=== PATIENT | female | born 1980 | race Caucasian/White ===

== ENCOUNTER 2021-01-25 08:23 | Outpatient (REF) | payer BC, SELFPAY ==
[2021-01-25 11:02] LABS: MANUAL DIFF FLAG NO
[2021-01-25 11:04] LABS: Basophils Percent Auto 0.3 % (0-2); Eosinophils Absolute Auto 0.1 X10*3/uL (0.0-0.4); Hematocrit 39.2 % (37-47); Hemoglobin 13.1 g/dl (12.0-16.0); Imm Gran Abs Auto 0.02 X10*3/uL (0.00-0.03); Imm Gran Pct Auto 0.3 % (0.0-0.4); Lymphocytes Absolute Auto 2.2 X10*3/uL (1.2-4.9); Lymphocytes Percent Auto 33.4 % (20-40); Mean Corpuscular HGB Conc 33.4 g/dl (31.0-35.0); Mean Corpuscular Hemoglobin 29.6 pg (27.0-33.0); Mean Corpuscular Volume 88.5 fL (80-98); Mean Platelet Volume 10.3 fL (9.4-12.3); Monocytes Absolute Auto 0.4 X10*3/uL (0.1-1.2); Monocytes Percent Auto 6.2 % (2-11); Neutrophils Absolute Auto 3.8 X10*3/uL (2.0-8.3); Neutrophils Percent Auto 57.8 % (45-73); Platelet Count 315 X10*3/uL (160-400); Red Blood Count 4.43 X10*6/uL (4.20-5.50); Red Cell Distribution Width 12.6 % (11.0-16.0); White Blood Count 6.5 X10*3/uL (4.8-10.8)
[2021-01-25 12:17] LABS: Alanine Aminotransferase 27 U/L (0-31); Albumin Level 4.3 g/dL (3.5-5.0); Alkaline Phosphatase 65 U/L (39-117); Anion Gap 12 (12-20); Aspartate Amino Transferase 30 U/L (5-31); Bilirubin Total 1.3 mg/dL (0.0-1.0); Blood Urea Nitrogen 14 mg/dL (9-16); Calcium 9.4 mg/dL (8.4-10.2); Carbon Dioxide 28 mmol/L (22-29); Chloride 105 mmol/L (96-108); Cholesterol 227 mg/dL; Estimated Glomerular Filt Rate > 60; Glucose Fasting 104 mg/dL (60-99); HDL Cholesterol 54 mg/dL; LDL Cholesterol Calculated 157 mg/dl; Potassium 4.1 mmol/L (3.3-5.1); Sodium 141 mmol/L (135-145); Triglycerides 84 mg/dL
== END 2021-01-25 08:24 | disposition home or self-care (01) ==
LOC: HO.MANLDS 08:23
PROVIDERS: PCP Physician Assistant; Visit Provider Physician Assistant
DX: Z00.00 Encounter for general adult medical examination without abnormal findings (principal)
CPT/HCPCS: 36415; 80053; 80061; 85025

== ENCOUNTER 2024-11-02 13:56 | Emergency (ER) | payer BC, SELFPAY ==
--- NOTE | ~2024-11-02 | XR_ITS ---
EXAMINATION: XR FINGER, LEFT CLINICAL INFORMATION: crush injury distal tip 4th finger COMPARISON: None available. TECHNIQUE: Three views of the left fourth digit. FINDINGS: Suspect subtle tuft fracture of the distal phalanx of the fourth digit. There is overlying soft tissue laceration. No malalignment or additional fracture. There is a tiny 1 mm radiopaque foreign body with the distal fingertip soft tissues. XR/XR finger LT min 2V IMPRESSION: 1. Suspect subtle tuft fracture of the distal phalanx of the fourth digit. 2. Tiny 1 mm radiopaque foreign body within the distal fingertip soft tissues. Electronically signed by: Ish Coyne MD 11/02/2024 02:29 PM EDT RP
--- NOTE | 2024-11-02 14:05 | ED_ITS ---
HPI - General Adult General Chief complaint: Extremity Injury, Upper Stated complaint: ring finger injury Time Seen by Provider: 11/02/24 15:27 Source: patient and family (patient's ) Mode of arrival: ambulatory Limitations: no limitations History of Present Illness ED Provider: Marika Cifuentes PA-C HPI narrative: Patient is a 44 year old assigned female at with no reported medical history presenting to the emergency department today with a left 4th finger injury. Patient states that she smashed her left 4th finger in between her 's trailer and her 's truck. Patient states that she is up to date on her tetanus status. Patient denies any dizziness, lightheadedness, abdominal pain, nausea, vomiting, fever, chills, blurry vision, double vision, loss of vision, chest pain, difficulty breathing, shortness of breath, back pain, night sweats, pain with urination, increased urinary frequency, increased urinary urgency, blood in her urine or stool, syncope or a near syncopal episode, bowel incontinence, bladder incontinence, or any other complaints at this time. Relieving factors: none Associated symptoms: denies other symptoms Treatments prior to arrival: none Related Data Previous Rx's ?Medication ?Instructions ?Recorded amoxicillin 875 mg-potassium 1 tab PO BID 7 days #14 t abs 11/02/24 clavulanate 125 mg tablet Allergies Allergy/AdvReac Type Severity Reaction Status Date / Time No Known Allergies Allergy Verified 11/02/24 14:08 Review of Systems 2 Constitutional: Constitutional: Reports no additional constitutional complaints, Denies chills, Denies fever(s) and Denies night sweats Eyes: Eyes: Reports no additional eye complaints, Denies blurry vision, Denies change in vision, Denies diplopia, Denies eye discharge, Denies loss of vision and Denies eye pain ENT: Denies dizziness Cardiovascular: Cardiovascular: Reports no additional cardiovascular complaints, Denies chest pain, Denies lightheadedness, Denies Loss of Consciousness and Denies dyspnea Respiratory: Respiratory: Reports no additional respiratory complaints and Denies dyspnea Gastrointestinal: Gastrointestinal: Reports no additional gastrointestinal complaints, Denies abdominal pain, Denies melena, Denies hematochezia, Denies change in bowel habits and Denies change in stool character Genitourinary: Genitourinary: Denies hematuria, Denies urinary frequency, Denies dysuria, Denies urinary incontinence, Denies urinary hesitancy and Denies urinary urgency Musculoskeletal: Musculoskeletal: Reports no additional musculoskeletal complaints, Denies numbness and Denies tingling Comments: left 4th finger pain Neurologic: Denies dizziness, Denies loss of vision, Denies numbness and Denies tingling Psychiatric: Psychiatric: Reports no additional psychiatric complaints Endocrine: Endocrine: Reports no additional endocrine complaints Hematologic/Lymphatic: Hematologic/Lymphatic: Reports no additional hematologic/lymphatic complaints Allergic/Immunologic: Allergic/Immunologic: Reports no additional allergic/immunologic complaints PMFSH Past Medical History Attestation statement: The following information was validated with the patient. Source: old records reviewed and nursing notes reviewed Social History Social History Advance Directives: No Advance Directives Information Provided: No Physical Exam ED Vital Signs: Vital Signs - 24 hr 11/02/24 14:06 11/02/24 16:24 11/02/24 17:16 Temperature 98.6 F 98 F 98 F Pulse Rate 85 88 88 Respiratory Rate 16 20 20 Blood Pressure 139/76 150/74 H 150/74 H Pulse Oximetry 96 98 98 Oxygen Delivery Method Room Air Room Air Room Air BMI result Body Mass Index 36.3 Const General: cooperative, no acute distress, alert and awake Nutritional Appearance: well nourished Orientation/consciousness: patient oriented x3 HENMT Head: Yes normal to inspection and Yes atraumatic Ears: hearing grossly normal bilaterally and external ears normal General nose exam: Normal external nose present, no nasal discharge noted and no epistaxis Face and sinus: Yes normal facial exam, No abrasion and No laceration Mouth: Normal oral and palatal mucosa present, no drooling and no muffled voice Eyes General: appearance normal, both eyes and all related structures Periorbital: periorbital findings normal Eyelids: Yes eyelids normal Conjunctivae: conjunctivae normal Pupils: Equal, round and reactive pupils present EOM: EOMs intact bilaterally Neck Neck: Yes normal visual inspection, Yes full ROM and Yes no lymphadenopathy Resp Effort & Inspection: normal respiratory effort and able to speak in complete sentences Neuro General: patient oriented x3, moves all extremities and CN's II-XI intact bilaterally Cranial nerves: Yes Equal, round and reactive pupils present Cognition (Neuro): normal cognition Extrem Other: General: Yes full ROM and Yes capillary refill normal Psych Appearance: grossly normal Mental Status: mental status grossly normal Affect: normal affect Attitude: cooperative Thought process: Normal thought process present Thought content: Normal thought content present Insight: Good insight present (Psych) Course Course Course Narrative: This is a rapid medical exam performed by Vini Live NP: Additional HPI, ROS, PE not included below will be deferred to primary provider. Patient is a 44-year-old left hand dominant female presenting to the ED with crush injury to distal tip of left 4th finger. Caught between trailer hitch and garage door. Tdap UTD, within past year. Rings removed in triage. Plan: x-ray Medications Administered Discontinued Medications Generic Name Dose Route Start Last Admin Trade Name Freq PRN Reason Stop Dose Admin Diazepam 2 mg 11/02/24 15:34 11/02/24 15:39 Diazepam 2 Mg Tablet PO 11/02/24 15:35 2 mg ONCE ONE Administration Lidocaine HCl 10 ml 11/02/24 15:34 11/02/24 15:39 Lidocaine Hcl 1 % Mpf 5 Ml Vial SUBCUT 11/02/24 15:35 10 ml ONCE ONE Administration Procedures Procedure Narrative Procedure Narrative: Patient's left 4th nail was partially avulsed and resting on top of the skin. I performed a digital block on the left 4th finger and then successfully slid the nail back down onto the nail matrix without incident. Patient's finger was bandaged with a non-stick gauze, without incident. Nerve Block Nerve Block 1: Time out performed: Yes Local Anesthetic: lidocaine 1% Amount of anesthesia used (mL): 10 Side: left Nerve Blocks: digital (4th) Procedure Successful: Yes Patient Tolerated Procedure: well Complications: none Orthopedic Splinting/Casting Injury #1: Side: left Upper Extremity Injury Location: finger (4th) Upper Extremity Immobilizer: finger (other) Medical Decision Making Medical Decision Making MDM Narrative: Patient is a 44 year old assigned female at with no reported medical history presenting to the emergency department today with a left 4th finger injury. Patient's physical exam was as noted in the physical exam portion of this note. Patient's left finger x-ray showed a distal 4th finger fracture of the tuft. I explained my physical exam findings as well as all test results to the patient and the patient's . I answered all questions asked by the patient and the patient's . I spoke with the orthopedic team who recommended having the patient's avulsed nail repaired, the finger splinted, PO ABX and having her follow up on an outpatient basis. Patient's left 4th avulsed nail was repaired, without incident, per procedure note. Patient had her left 4th finger splinted, per procedure note, without incident. Patient's PMS was intact prior to and after avulsed nail repair and splint. I stressed the importance of the patient taking her medication as directed (either prescribed or as the over the counter packaging recommends). I stressed the importance of the patient following up with her primary care provider and the orthopedic team. I stressed the importance of the patient returning to the emergency department immediately if her symptoms were to worsen or if she were to develop any dizziness, shortness of breath, difficulty breathing, chest pain, blurry vision, loss of vision, nausea, vomiting, abdominal pain, fever, chills, back pain, or any other complaints. Patient and the patient's verbalized agreement and understanding with this treatment plan and discharge. Differential Diagnosis Differential Diagnoses: The differential diagnosis associated with the presentation includes Finger fracture Nail avulsion Admission/Observation Consideration of admission/observation: Escalation of care including admission/observation considered Patient would have been admitted to the hospital had her work up had any findings where hospital admission was appropriate and her clinical presentation warranted hospital admission. Consult Healthcare Provider Management of the patient was discussed with: Night Time Babysitter (I spoke with the orthopedic team as noted in the MDM Rationale portion of this note. ) Independent Interpretation I performed an independent interpretation of an: Plain X-Ray Interpretation: My interpretation is in agreement with the radiologist's impression of this imaging study. L EXAMINATION: XR FINGER, LEFT CLINICAL INFORMATION: crush injury distal tip 4th finger COMPARISON: None available. TECHNIQUE: Three views of the left fourth digit. FINDINGS: Suspect subtle tuft fracture of the distal phalanx of the fourth digit. There is overlying soft tissue laceration. No malalignment or additional fracture. There is a tiny 1 mm radiopaque foreign body with the distal fingertip soft tissues. XR/XR finger LT min 2V IMPRESSION: 1. Suspect subtle tuft fracture of the distal phalanx of the fourth digit. 2. Tiny 1 mm radiopaque foreign body within the distal fingertip soft tissues. Electronically signed by: Ish Coyne MD 11/02/2024 02:29 PM EDT RP Dictated By: Ish Coyne MD Signed By: Electronically signed by Ish Coyne MD 11/02/24 1429 Radiology Impression Discussion of test interpretation with radiology: I have reviewed the radiologist's reading. Independent Historian Clinical information obtained from an independent historian. History obtained from or confirmed by: Spouse (Patient's provided additional history and confirmed the history provided by the patient. ) Prescription Management I considered prescription management with: Antibiotic (Given the patient's mechanism of injury and clinical presentation - patient started on prophylactic antibiotic) Critical Care Time Critical Care Time Critical Care Time: Yes Total Critical Care Time: 41 Attestation: I spent 41 minutes of Critical Care Time with this patient. This does not include time spent on separately reported billable procedures. Discharge Plan Discharge Clinical Impression: Finger fracture, Nail avulsion, finger Patient Disposition: Home, Self-Care Instructions: Arm Fracture in Adults (DC), Nail Avulsion (ED) Additional Instructions: Do NOT get your splint wet. Do NOT remove your splint. If you have any change in sensation, movement, or color of your left 4th finger - you may loosen the outer FLORES wraps. If you find yourself loosening the FLORES wraps to the point of seeing the white splint material underneath - STOP and proceed to your closest Emergency Department, immediately. Follow up with your primary care provider and the orthopedic team. Return to the emergency department immediately if your symptoms worsen or if you develop any numbness, tingling, dizziness, shortness of breath, difficulty breathing, chest pain, blurry vision, loss of vision, nausea, vomiting, abdominal pain, fever, chills, back pain, or any other complaints. Please see the information below about our Patient Portal. If you are not yet enrolled in the [facility] Patient Portal, you will receive an enrollment email invitation following your visit to any [facility] care setting. You may also self-enroll in the Patient Portal by visiting our website: [email or web address] The following information is required to access the Patient Portal: - Your [facility] Medical Record Number - Your personal home email address (must match what is in your electronic medical record, Registration staff can assist with this) - Name - Date of Capabilities of the Patient Portal: - Message some providers - View upcoming appointments - Access your health summary, medical history, and visit history - View current conditions and allergies - View procedure and lab results - View your medications, including guidelines, side effects, and precautions - Complete pre-appointment questionnaires requested by your provider - Ready summary reports of your office visits and procedures To access the Patient Portal Mobile [employer], follow these directions: - Search [employer] in the [employer] Store or [employer] Store - Download the [employer] - Search for [facility] - Enter your login/password Prescriptions: New amoxicillin-pot clavulanate 875-125 mg tablet 1 tab PO BID 7 Days Qty: 14 0RF Referrals: [facility] Orthopedic Surgeons [Provider Group] Referral Note: Call to establish and follow up with an orthopedic provider. Olvin Black MD [Primary Care Provider, Medical] Stand Alone Forms: Work/School Release Interventions: ED Discharge Assessment Last Done: 11/02/24 17:16 Discharge Date/Time: 11/02/24 17:45 Print Language: [place]
[2024-11-02 14:06] VITALS: BP 139/76; PULSE 85; RESP 16; TEMP 37; O2SAT 96; BMI 36.3
[2024-11-02] MEDS: diazePAM 2 MG TABLET PO (15:39)
[2024-11-02] MEDS: Lidocaine HCl 1 % MPF 5 ML VIAL 10 ML SUBCUT (15:39)
[2024-11-02 16:24] VITALS: BP 150/74; PULSE 88; RESP 20; TEMP 36.6; O2SAT 98
[2024-11-02 17:16] VITALS: BP 150/74; PULSE 88; RESP 20; TEMP 36.6; O2SAT 98
--- OUTSIDE RECORDS SUMMARY | 2024-11-02 18:19 | XMS_ITS | Data Portability ---
Author Organization [facility], Telehealth Patient Home Address [address] [place] [address] Assessment No assessment recorded. Plan of Treatment Reminders Order Date Submit Date Provider Last Modified By Organization Details Last Modified Time Details Appointments ANNUAL EXAM 2024 01:30P ZAID CORBIN Not available Not available Not available Lab lipid panel, blood 2020 021 [facility], [address] [place] [address], [id number], 09/25/2020 09:10:25 CMP, serum or plasma 2020 021 [facility], [address] [place] [address], [id number], 09/25/2020 09:10:25 CBC w/ auto diff 2020 021 [facility], [address] [place] [address], [id number], 09/25/2020 09:10:25 Referral None recorded. Procedures None recorded. Surgeries None recorded. Imaging None recorded. Medication Orders prednison e 10 mg tablet 2022 023 [facility]/Pharmacy #2024, [address] [place], [address], 01/16/2023 11:21:49 fluconazo le 200 mg tablet 2022 023 [facility]/Pharmacy #2024, [address] [place], [address], 01/16/2023 11:21:45 albuterol sulfate 2.5 mg/3 mL (0.083 %) solution for nebulizat ion 2018 019 INTERFACE Not available 04/26/2019 10:50:27 Tessalon Perles 100 mg capsule 2018 019 [email or web address] Not available 09/25/2020 08:57:50 Patient TargetsNo targets recorded. Patient Instructions Encounter Date Encounter Id Patient Instructions Last Modified By Organization Details Last Modified Time 04/26/2019 [id number] upper respirator y infection (cold): care instructions [email or web address] Not available 04/26/2019 10:50:24 Reason for Referral None Reported. Results Created Date Observation Date Name Description Value Unit Range Abnormal Flag Note LastModifiedBy Organization Detail LastModifiedTime 08/25/19 25 08/24/2024 MAMMO , scree laura, digit al, bilat eral No observ ation record ed. gosia [facility] [address] [place] [address] D, [place], [address], 08/26/2024 08:32:11 11/03/19 25 11/02/2024 XR, finge r(s) No observ ation record ed. [email or web address] [facility] (Medical Records) [address] [place] [address], [id number], 11/02/2024 14:45:58 Result Notes None recorded. Problems Name Problem SNOMED Code Status Onset Date Resolution Date Notes Provider Name and Address Organization Details Recorded Time Bacterial conjuncti vitis 406166932 Active 2021 Not Available [facility] 2 10:01:40 Candidias is of vagina 86654443 Active 2021 Not Available [facility] 2 10:01:40 Orbital celluliti s 986842099 Active 2021 Not Available [facility] 2 10:01:40 Acute sinusitis 79363618 Active 2022 ZAID FAITH [address] [facility], [place], [address], [facility] 3 11:08:33 Candidias is of skin 05894738 Active 2022 ZAID FAITH [address] [place], [address], [facility] 3 11:19:17 Acute otitis media 7098069 Active 2022 ZAID FAITH [address] [place], [address], [facility] 3 09:02:28 Gastroeso phageal reflux disease 444445615 Active 2017 Not Available [facility] 2 10:01:40 Insomnia 321796647 Active 2017 Not Available [facility] 2 10:01:40 Irritable bowel syndrome 52005044 Active 2017 Not Available [facility] 2 10:01:40 Panic 96113337 Active 2017 Not Available [facility] 2 10:01:40 History of depressio n 294983271 Active 2017 Not Available [facility] 2 10:01:40 Impaired fasting glycemia 410753866 Active 2017 Not Available [facility] 2 10:01:40 Hyperglyc emia 69913980 Active 2017 Not Available [facility] 2 10:01:40 Vitamin D deficienc y 14481910 Active 2017 monitor yearly Not Available [facility] 2 10:01:40 Inflammat ion of rotator cuff tendon 165680673 Active 2017 Left, mild Not Available [facility] 2 10:01:40 Problem Notes None recorded. Medical Equipment None Reported. Allergies No known drug allergies Medications Name Sig Start Date Stop Date Status Note LastModified by Organization Details LastModified Time prednisone 10 mg tablet PLEASE SEE ATTACHED FOR DETAILED DIRECTION S active Not Available Not Available No t Available albuterol sulfate 2.5 mg/3 mL (0.083 %) solution for nebulizatio n Inhale 3 mL every 6 hours by nebulizat ion route as needed for 30 days. active Not Available Not Available No t Available fluconazole 150 mg tablet TAKE 1 TABLET BY MOUTH EVERY DAY FOR 3 DAYS active Not Available Not Available No t Available fluconazole 200 mg tablet TAKE 1 TABLET BY MOUTH EVERY DAY FOR 5 DAYS active Not Available Not Available No t Available sulfamethox azole 800 mg-trimetho prim 160 mg tablet TAKE 1 TABLET BY MOUTH EVERY 12 HOURS FOR 7 DAYS active Not Available Not Available No t Available Tessalon Perles 100 mg capsule Take 1 capsule 3 times a day by oral route for 10 days. 09/25 completed Not Available Not Available Not Available amoxicillin 875 mg tablet TAKE 1 TABLET BY MOUTH EVERY 12 HOURS FOR 7 DAYS active Not Available Not Available No t Available ciprofloxac in 0.3 % eye drops PLEASE SEE ATTACHED FOR DETAILED DIRECTION S active Not Available Not Available No t Available erythromyci n 5 mg/gram (0.5 %) eye ointment APPLY 1 CM RIBBON INTO THE LOWER CONJUNCTI MADISON SAC(S) IN THE AFFECTED EYE(S) 3 TIMES PER DAY active Not Available Not Available No t Available methylpredn isolone 4 mg tablets in a dose pack TAKE 6 TABLETS ON DAY 1 DIRECTED ON PACKAGE AND DECREASE BY 1 TAB EACH DAY FOR A TOTAL OF 6 DAYS active Not Available Not Available No t Available amoxicillin 875 mg-potassiu m clavulanate 125 mg tablet TAKE 1 TABLET BY MOUTH EVERY 12 HOURS FOR 7 DAYS active Not Available Not Available No t Available drospirenon e 3 mg-ethinyl estradiol 0.02 mg tablet TAKE 1 TABLET BY MOUTH EVERY DAY active Not Available Not Available No t Available Afluria 8090-7992 (PF) 45 mcg(15 mcg x 3)/0.5 mL intramuscul ar syringe active Not Available Not Available N ot Available Jacqueline 0.25 mg-0.035 mg tablet TAKE 1 TABLET BY MOUTH DAILY active Not Available Not Available No t Available Flucelvax Quad 60 mcg (15 mcg x 4)/0.5 mL intramuscul ar susp 04/26 completed Not Available Not Available Not Available Vitals Date Recorded Body weight Body mass index (BMI) Body height Oxygen saturation Oxygen saturation in Arterial blood by Pulse oximetry Heart rate Systolic blood pressure Diastolic blood pressure Provider Name and Address Organization Details Last Updated DateTime 1 24497.8 8 g 34.7 kg/m2 161.29 cm 98 % 98 % 85 /min 138 mm[Hg] 80 mm[Hg] Apurva Chairez [facility] 1 08:59:54 Date Recorded Body height Body mass index (BMI) Body weight Heart rate Oxygen saturation Oxygen saturation in Arterial blood by Pulse oximetry Systolic blood pressure Diastolic blood pressure Provider Name and Address Organization Details Last Updated DateTime 3 161.29 cm 32.8 kg/m2 59906.3 7 g 90 /min 99 % 99 % 132 mm[Hg] 84 mm[Hg] Suze Montilla [facility] 3 10:50:36 Date Recorded Body temperature Heart rate Oxygen saturation Oxygen saturation in Arterial blood by Pulse oximetry Systolic blood pressure Diastolic blood pressure Provider Name and Address Organization Details Last Updated DateTime 9 99 [degF] 100 /min 98 % 98 % 132 mm[Hg] 78 mm[Hg] Maritza Velazquez [facility] 9 10:17:32 Social History Question Answer Notes LastModified by Organizat ion Details LastModified Time Tobacco Smoking Status Never Smoker Not Available [facility] 03/13/2020 03:36:24 What Was The Date Of Your Most Recent Tobacco Screening? 01/16/2023 [email or web address] Information not available 01/16/2023 Sex: Unknown Functional Status None recorded. Mental Status None recorded. Family History Nothing Reported. Medical History No medical history recorded. Gynecological HistoryNo gynecological history recorded. Obstetrics History GPAL:G 0 P 0 0 0 0 Immunizations Vaccine Type Date Status Note Provider Nam e and Address Organization Details Recorded Time Influenza, MDCK, quadrivalent, preservative 9 completed Maritza bustos [facility] 04/26/2019 09:39:51 COVID-19, mRNA, LNP-S, PF, 100 mcg/0.5mL dose or 50 mcg/0.25mL dose 1 completed Maritza bustos [facility] 06/01/2020 15:02:39 COVID-19, mRNA, LNP-S, PF, 100 mcg/0.5mL dose or 50 mcg/0.25mL dose 1 completed ZAID FAITH [address] [place], [address], [facility] 09/25/2020 09:07:20 Past Encounters Encounter ID Performer Location Encounter Start Date Encounter Closed Date Diagnosis/Indication Diagnosis SNOMED-CT Code Diagnosis ICD10 Code Diagnosis Note [id number] Olvin Black [facility] [address] [facility],[place] [address] 04/26/2019 10:05:03 04/26/2019 10:52:08 Acute upper respiratory infection 61690866 J06.9 will follow and add tessalon if settles in chest with congestion will call and get rx Acute bronchitis 8918962 2 J20.9 [id number] Olvin Black [facility] [address] [facility], [place] [address] 09/25/2020 08:53:12 09/25/2020 11:22:16 Active or passive immunization 849732078 Z23 will submit to pharmacy [facility] examination 158971100 Z00.00 BP fine will monitor working on diet and exercise [id number] Olvin Black [facility] [address] [facility], [place] [address] 01/16/2023 10:41:33 01/16/2023 12:03:41 Candidiasis of skin 23910798 B37.2 will start on prednisone taper and fluconazol e for 5 days Health Concerns Section Related Observation LastModified by Organization Detai ls LastModified Time None Recorded Concern Status LastModified by Organization Details LastModified Time None Recorded Advance Directives Directive None Recorded Payers Insurance Date Sequence Insurance Name Policy Number Policy Almaraz Covered Member ID Almaraz Member ID Guarantor Name 11/01/2024 1 [facility] [place] [id number] José Antonio Cabrera [id number] Cabrera Notes Date Note Type Note Provider Name a nd Address Organization Details Recorded Time 9 text/html had a lot of sinus pressure and having nasal congestion cough nonproductive taking mucinex and using her updraft nebulizer fever went to 99. slight wheeze with coughing but using nebulizer with good results Olvin Black DO [address] [place], [address], [facility] 04/26/2019 10:51:16 1 text/html Annual WellnessReported bypatient.Diet and Nutrition:healthy diet; discussed vitamin and supplement use; discussed portion control; discussed maintaining calcium balance; discussed diet improvement Fracture Risk:no history of fractures; no recent explained fracture; no sudden unexplained fractures; no previous musculoskeletal injuries Physical Activity:exercises on a regular basis; recent increase in physical activity; good physical condition Additional Lifestyle Factors:no tobacco use; drinks alcohol (mild-moderate) (rarely) Depression Risk:never feels sad, empty, or tearful; no loss of interest in activities; no significant changes in weight; no sleep disturbances or insomnia; no agitation; no loss of energy; no feelings of worthlessness or guilt; no thoughts of suicide; no history of depression; no history of mood disorders Hearing:no loss of hearing Vision:no vision problems; no glasses or contacts ZAID FAITH [address] [place], [address], [facility] 09/25/2020 09:15:38 3 text/html c/o rash under the breasts the patient has been having a worsening rash under the breast related to sweat and heat did try cortizone cream prior to coming in today will start on steriod taper and anti-fungal infection ZAID FAITH [address] [place], [address], [facility] 01/16/2023 11:42:30 OBGyn Episode No OBEpisode recorded.
== END 2024-11-02 17:45 | disposition home or self-care (01) ==
PROVIDERS: Emergency Provider Emergency Medicine; PCP Internal Medicine
DX: S62.605A Fracture of unspecified phalanx of left ring finger, initial encounter for closed fracture (principal); S61.305A Unspecified open wound of left ring finger with damage to nail, initial encounter; M79.642 Pain in left hand; X58.XXXA Exposure to other specified factors, initial encounter; Y29.XXXA Contact with blunt object, undetermined intent, initial encounter; Y93.9 Activity, unspecified; Y92.9 Unspecified place or not applicable; Y99.8 Other external cause status
CPT/HCPCS: 29130; 64450; 73140; 99283; 99284; J2003

== ENCOUNTER → 2024-11-02 14:07 | Outpatient (BNV) | payer BC, SELFPAY | PROVIDERS: PCP Internal Medicine; Visit Provider Radiology Diagnostic Radiology | DX: S67.194A Crushing injury of right ring finger, initial encounter (principal) | CPT/HCPCS: 73140 ==

== ENCOUNTER 2024-11-04 09:14 | Outpatient (REF) | payer BC, SELFPAY ==
--- NOTE | ~2024-11-04 | XR_ITS ---
CLINICAL HISTORY: M79.642 - Pain in left hand --- Additional Notes or Special Instructions: Attn RF Left hand three views Comparison: None provided Findings: Minimal fracture tuft of 4th distal phalanx. No other acute bony abnormality. Small metallic density distal soft tissues of 4th digit. Impression: Minimal cortical fracture tuft of 4th distal phalanx Small metallic foreign body distal 4th digit soft tissues This document has been electronically signed by: Sky Galvez MD on 11/05/2024 20:07:48
--- OUTSIDE RECORDS SUMMARY | 2024-11-04 09:36 | XMS_ITS | Data Portability ---
Author Organization [facility], Telehealth Patient Home Address [address] [place] [address] Assessment No assessment recorded. Plan of Treatment Reminders Order Date Submit Date Provider Last Modified By Organization Details Last Modified Time Details Appointments ANNUAL EXAM 2024 01:30P ZAID CORBIN Not available Not available Not available Lab lipid panel, blood 2020 021 [facility], [address] [place] [address], [address], 09/25/2020 09:10:25 CMP, serum or plasma 2020 021 [facility], [address] [place] [address], [address], 09/25/2020 09:10:25 CBC w/ auto diff 2020 021 [facility], [address] [place] [address], [address], 09/25/2020 09:10:25 Referral None recorded. Procedures None recorded. Surgeries None recorded. Imaging None recorded. Medication Orders prednison e 10 mg tablet 2022 023 [facility]/Pharmacy #2024, [address] [place], [address], 01/16/2023 11:21:49 fluconazo le 200 mg tablet 2022 023 [facility]/Pharmacy #2024, [address] [place], [address], 01/16/2023 11:21:45 albuterol sulfate 2.5 mg/3 mL (0.083 %) solution for nebulizat ion 2018 019 INTERFACE Not available 04/26/2019 10:50:27 Tessalon Perles 100 mg capsule 2018 019 [email or web address] Not available 09/25/2020 08:57:50 Patient TargetsNo targets recorded. Patient Instructions Encounter Date Encounter Id Patient Instructions Last Modified By Organization Details Last Modified Time 04/26/2019 [id number] upper respirator y infection (cold): care instructions [email or web address] Not available 04/26/2019 10:50:24 Reason for Referral None Reported. Results Created Date Observation Date Name Description Value Unit Range Abnormal Flag Note LastModifiedBy Organization Detail LastModifiedTime 08/25/19 25 08/24/2024 MAMMO , scree laura, digit al, bilat eral No observ ation record ed. gos[facility] [address] [place] [address] D, [place], [address], 08/26/2024 08:32:11 11/03/19 25 11/02/2024 XR, finge r(s) No observ ation record ed. [email or web address] [facility] (Medical Records) [address] [place] [address], [address], 11/02/2024 14:45:58 Result Notes None recorded. Problems Name Problem SNOMED Code Status Onset Date Resolution Date Notes Provider Name and Address Organization Details Recorded Time Bacterial conjuncti vitis 524617270 Active 2021 Not Available [facility] 2 10:01:40 Candidias is of vagina 43220939 Active 2021 Not Available [facility] 2 10:01:40 Orbital celluliti s 923166660 Active 2021 Not Available [facility] 2 10:01:40 Acute sinusitis 51375304 Active 2022 ZAID FAITH [address] [facility], [place], [address], [facility] 3 11:08:33 Candidias is of skin 93631338 Active 2022 ZAID FAITH [address] [place], [address], [facility] 3 11:19:17 Acute otitis media 1147114 Active 2022 ZAID FAITH [address] [place], [address], [facility] 3 09:02:28 Gastroeso phageal reflux disease 243467521 Active 2017 Not Available [facility] 2 10:01:40 Insomnia 530434705 Active 2017 Not Available [facility] 2 10:01:40 Irritable bowel syndrome 01040236 Active 2017 Not Available [facility] 2 10:01:40 Panic 94405534 Active 2017 Not Available [facility] 2 10:01:40 History of depressio n 749956121 Active 2017 Not Available [facility] 2 10:01:40 Impaired fasting glycemia 687368227 Active 2017 Not Available [facility] 2 10:01:40 Hyperglyc emia 46678877 Active 2017 Not Available [facility] 2 10:01:40 Vitamin D deficienc y 13263792 Active 2017 monitor yearly Not Available [facility] 2 10:01:40 Inflammat ion of rotator cuff tendon 105709236 Active 2017 Left, mild Not Available [facility] 2 10:01:40 Problem Notes None recorded. Medical [...] Available Not Available No t Available Afluria 7416-5913 (PF) 45 mcg(15 mcg x 3)/0.5 mL [...] Address Organization Details Last Updated DateTime 1 90288.8 8 g 34.7 kg/m2 161.29 cm 98 % 98 % 85 /min 138 mm[Hg] 80 mm[Hg] Apurva Chairez [facility] 1 08:59:54 Date Recorded Body height Body mass index (BMI) Body weight Heart rate Oxygen saturation Oxygen saturation in Arterial blood by Pulse oximetry Systolic blood pressure Diastolic blood pressure Provider Name and Address Organization Details Last Updated DateTime 3 161.29 cm 32.8 kg/m2 81428.3 7 g 90 /min 99 % 99 % 132 mm[Hg] 84 mm[Hg] Suze Montilla [facility] 3 10:50:36 Date Recorded Body temperature Heart rate Oxygen saturation Oxygen saturation in Arterial blood by Pulse oximetry Systolic blood pressure Diastolic blood pressure Provider Name and Address Organization Details Last Updated DateTime 9 99 [degF] 100 /min 98 % 98 % 132 mm[Hg] 78 mm[Hg] Maritza Velazquez [facility] 9 10:17:32 Social History Question Answer Notes [...] MDCK, quadrivalent, preservative 9 completed Maritza bustos [facility] 04/26/2019 09:39:51 COVID-19, mRNA, LNP-S, PF, 100 mcg/0.5mL dose or 50 mcg/0.25mL dose 1 completed Maritza bustos [facility] 06/01/2020 15:02:39 COVID-19, mRNA, LNP-S, PF, 100 mcg/0.5mL dose or 50 mcg/0.25mL dose 1 completed ZAID FAITH [address] [place], [address], [facility] 09/25/2020 09:07:20 Past Encounters Encounter ID Performer Location Encounter Start Date Encounter Closed Date Diagnosis/Indication Diagnosis SNOMED-CT Code Diagnosis ICD10 Code Diagnosis Note [id number] Olvin Black [facility] [address] [facility],[place] [address] 04/26/2019 10:05:03 04/26/2019 10:52:08 Acute upper respiratory infection 08271267 J06.9 will follow and add tessalon if settles in chest with congestion will call and get rx Acute bronchitis 1628358 2 J20.9 [id number] Olvin Black [facility] [address] [facility], [place] [address] 09/25/2020 08:53:12 09/25/2020 11:22:16 Active or passive immunization 857480324 Z23 will submit to pharmacy Adult [facility] th examination 999374221 Z00.00 BP fine will monitor working on diet and exercise [id number] Olvin Black [facility] [address] [facility], [place] [address] 01/16/2023 10:41:33 01/16/2023 12:03:41 Candidiasis of skin 29664568 B37.2 will start on prednisone taper and fluconazol e for 5 days Health Concerns Section Related Observation LastModified by Organization Detai ls LastModified Time None Recorded Concern Status LastModified by Organization Details LastModified Time None Recorded Advance Directives Directive None Recorded Payers Insurance Date Sequence Insurance Name Policy Number Policy Almaraz Covered Member ID Almaraz Member ID Guarantor Name 11/01/2024 1 [facility] [id number] José Antonio Cabrera [id number] Notes Date Note Type Note Provider Name a nd Address Organization Details Recorded Time 9 text/html had a lot of sinus pressure and having nasal congestion cough nonproductive taking mucinex and using her updraft nebulizer fever went to 99. slight wheeze with coughing but using nebulizer with good results Olvin Black DO [address] [place], [address], [facility] 04/26/2019 10:51:16 1 text/html Annual [...] no glasses or contacts ZAID FAITH [address] [place], [address], [facility] 09/25/2020 09:15:38 3 text/html c/o rash under the breasts the patient has been having a worsening rash under the breast related to sweat and heat did try cortizone cream prior to coming in today will start on steriod taper and anti-fungal infection ZAID FAITH [address] [place], [address], [facility] 01/16/2023 11:42:30 OBGyn Episode No OBEpisode recorded.
== END 2024-11-04 09:15 | disposition home or self-care (01) ==
LOC: HO.HOSX 09:14
DX: M79.642 Pain in left hand (principal)
CPT/HCPCS: 73130

== ENCOUNTER 2024-11-04 10:32 | Outpatient (AMB) | payer BC, SELFPAY ==
--- NOTE | 2024-11-04 10:45 | A.OFFVIS_ITS ---
Vital Signs 11/04/24 10:47 Height 5 ft 3 in Weight 205 lb BMI 36.3 Intake Visit Reasons: FC-Lt 4th digit distal phalanx fx DOI: 11/02/24 Intake Note: 11/02/24.Akilah is a 44 year old left hand dominant female who presents today for a fracture care visit for her left hand injury, DOI: 11/02/24. Patient states that she smashed her left 4th finger in between her 's trailer and her garage. Xrays were taken in ED, fracture was confirmed, and referred to Orthopedics. Dressing removed and xrays updated in office.Patient reports throbbing pain that is on and off, had been taking ibuprofen for pain, with relief. Denies any numbness or tingling. Allergies No Known Allergies Allergy (Verified 11/04/24 10:47) HPI HPI FC-Lt 4th digit distal phalanx fx DOI: 11/02/24: Details: 11/02/24.Akilah is a 44 year old left hand dominant female who presents today for a fracture care visit for her left hand injury, DOI: 11/02/24. Patient states that she smashed her left 4th finger in between her 's trailer and her garage. Xrays were taken in ED, fracture was confirmed, and referred to Orthopedics. Dressing removed and xrays updated in office.Patient reports throbbing pain that is on and off, had been taking ibuprofen for pain, with relief. Denies any numbness or tingling. 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 Neuro: Normal sensation of the tips of all digits of the left hand at this time Vascular: Cap refill brisk Pain: Minimal tenderness to palpation about the distal phalanx of the left ring finger Skin: There is noted to be some dried blood around the nail, which was replaced in the ED as it had previously been removed by the injury No active drainage at this time No evidence of surrounding erythema General: No ecchymosis, erythema, or evidence of infection. Psych: Appears grossly normal Affect normal Attitude cooperative Office Procedures AMB Fracture Care Fracture Billing Code: Fracture Billing Code Results Reviewed Results Reviewed: X-rays obtained in the office today and independently reviewed by me, Alex Skaggs PA-C, demonstrate tiny nondisplaced avulsion fracture of the tip of the distal phalanx of the right ring finger. Assessment & Plan Assessment & Plan (1) Open fracture of distal phalanx of right ring finger: Code(s): S62.634B - Displaced fracture of distal phalanx of right ring finger, initial encounter for open fracture Category: Medical Plan 1. Open fracture of distal phalanx of right ring finger, nondisplaced Date of injury 11/02/2024 Patient is educated about this injury Patient is educated about the typical treatment course At this time, patient is informed that there is no surgical intervention indicated for this injury Antibiotics are refilled Patient is educated on daily dressing changes Patient is educated that starting on Thursday, she can gently wash the injury site with soap and water in the sink or the shower Patient is amenable to this plan Follow-up in 1 week for wound check, sooner with any acute concerns Orders: Orders XR hand LT min 3V Today M79.642 - Pain in left hand Medications: Refilled amoxicillin-pot clavulanate 875-125 mg 1 tab PO BID 14 tabs 0RF 7 days Coding Level of Care Code New Pt Level 3 (53411) Diagnoses Open fracture of distal phalanx of right ring finger S62.634B CPT Codes Fracture Care - Fracture Billing Code: Fracture Billing Code ([id number])
[2024-11-04 10:47] VITALS: BMI 36.3
== END 2024-11-04 11:22 | disposition home or self-care (01) ==
LOC: HO.HOS 10:33
PROVIDERS: PCP Internal Medicine
DX: S62.634B Displaced fracture of distal phalanx of right ring finger, initial encounter for open fracture (principal)
CPT/HCPCS: 99203

== ENCOUNTER → 2024-11-04 10:34 | Outpatient (BNV) | payer BC, SELFPAY | PROVIDERS: Visit Provider Radiology Diagnostic Radiology | DX: S62.665A Nondisplaced fracture of distal phalanx of left ring finger, initial encounter for closed fracture (principal); S60.451A Superficial foreign body of left index finger, initial encounter | CPT/HCPCS: 73130 ==

== ENCOUNTER 2024-11-09 09:27 | Outpatient (AMB) | payer BC, SELFPAY ==
--- OUTSIDE RECORDS SUMMARY | 2024-11-09 09:42 | XMS_ITS | Continuity of Care Document ---
Author Organization [facility] Internal [facility], [facility] Address [address] [place] [address] [place] [address] Assessment No assessment recorded. Plan of Treatment Reminders Order Date Submit Date Provider Last Modified By Organization Details Last Modified Time Details Appointments ANNUAL EXAM 2025 01:30P ZAID CORBIN Not available Not available Not available Lab vitamin D, 25-hydrox y, total, serum 2024 025 [facility], [address] [place] [address], [id number], 11/04/2024 13:59:43 lipid panel, blood 2024 025 [facility], [address] [place] [address], [id number], 11/04/2024 13:59:43 CMP, serum or plasma 2024 025 [facility], [address] [place] [address], [id number], 11/04/2024 13:59:43 CBC w/ auto diff 2024 025 [facility], [address] [place] [address], [id number], 11/04/2024 13:59:43 Referral gastroent erologist referral 2024 025 [facility], [address] [place] [address], [id number], 11/07/2024 09:22:04 Procedures None recorded. Surgeries None recorded. Imaging None recorded. Medication Orders None recorded. Patient TargetsNo targets recorded. Patient InstructionsNo instructions recorded. 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 [email or web address] [facility] (Medical Records) [address] [place], [address], 11/02/2024 14:45:58 Result Notes None recorded. Problems Name Problem SNOMED Code Status Onset Date Resolution Date Notes Provider Name and Address Organization Details Recorded Time Bacterial conjuncti vitis 831223679 Active 2021 Not Available [facility] 2 10:01:40 Candidias is of vagina 56800198 Active 2021 Not Available [facility] 2 10:01:40 Orbital celluliti s 964661611 Active 2021 Not Available [facility] 2 10:01:40 Acute sinusitis 13864524 Active 2022 ZAID FAITH [address] [place] [address], [phone], [facility] 3 11:08:33 Candidias is of skin 91152704 Active 2022 ZAID FAITH [address] [place] [address], [phone], [facility] 3 11:19:17 Acute otitis media 0403716 Active 2022 ZAID FAITH [address] [place] [address], [phone], [facility] 3 09:02:28 Gastroeso phageal reflux disease 582570973 Active 2017 Not Available [facility] 2 10:01:40 Insomnia 783023379 Active 2017 Not Available [facility] 2 10:01:40 Irritable bowel syndrome 48016851 Active 2017 Not Available [facility] 2 10:01:40 Panic 49912676 Active 2017 Not Available [facility] 2 10:01:40 History of depressio n 780787991 Active 2017 Not Available [facility] 2 10:01:40 Impaired fasting glycemia 878831816 Active 2017 Not Available [facility] 2 10:01:40 Hyperglyc emia 25623265 Active 2017 Not Available [facility] 2 10:01:40 Vitamin D deficienc y 38717543 Active 2017 monitor yearly ZAID FAITH [address] [place], [address], [facility] 5 13:52:42 Inflammat ion of rotator cuff tendon 486618047 Active 2017 Left, mild Not Available [facility] 2 10:01:40 Problem Notes None recorded. Medical Equipment None Reported. Allergies No known drug allergies Medications Name Sig Start Date Stop Date Status Note LastModified by Organization Details LastModified Time prednisone 10 mg tablet PLEASE SEE ATTACHED FOR DETAILED DIRECTION S 11/04 completed Not Available Not Available Not Available albuterol sulfate 2.5 mg/3 mL (0.083 %) solution for nebulizatio n Inhale 3 mL every 6 hours by nebulizat ion route as needed for 30 days. active Not Available Not Available No t Available fluconazole 150 mg tablet TAKE 1 TABLET BY MOUTH EVERY DAY FOR 3 DAYS 11/04 completed Not Available Not Available Not Available fluconazole 200 mg tablet TAKE 1 TABLET BY MOUTH EVERY DAY FOR 5 DAYS 11/04 completed Not Available Not Available Not Available sulfamethox azole 800 mg-trimetho prim 160 mg tablet TAKE 1 TABLET BY MOUTH EVERY 12 HOURS FOR 7 DAYS 11/04 completed Not Available Not Available Not Available Tessalon Perles 100 mg capsule Take 1 capsule 3 times a day by oral route for 10 days. 09/25 completed Not Available Not Available Not Available amoxicillin 875 mg tablet TAKE 1 TABLET BY MOUTH EVERY 12 HOURS FOR 7 DAYS 11/04 completed Not Available Not Available Not Available ciprofloxac in 0.3 % eye drops PLEASE SEE ATTACHED FOR DETAILED DIRECTION S 11/04 completed Not Available Not Available Not Available erythromyci n 5 mg/gram (0.5 %) eye ointment APPLY 1 CM RIBBON INTO THE LOWER CONJUNCTI MADISON SAC(S) IN THE AFFECTED EYE(S) 3 TIMES PER DAY 11/04 completed Not Available Not Available Not Available methylpredn isolone 4 mg tablets in a dose pack TAKE 6 TABLETS ON DAY 1 DIRECTED ON PACKAGE AND DECREASE BY 1 TAB EACH DAY FOR A TOTAL OF 6 DAYS 11/04 completed Not Available Not Available Not Available amoxicillin 875 mg-potassiu m clavulanate 125 mg tablet TAKE 1 TABLET BY MOUTH EVERY 12 HOURS FOR 7 DAYS 11/04 completed Not Available Not Available Not Available drospirenon e 3 mg-ethinyl estradiol 0.02 mg tablet TAKE 1 TABLET BY MOUTH EVERY DAY 11/04 completed Not Available Not Available Not Available Afluria 1805-4722 (PF) 45 mcg(15 mcg x 3)/0.5 mL intramuscul ar syringe active Not Available Not Available N ot Available Jacqueline 0.25 mg-0.035 mg tablet TAKE 1 TABLET BY MOUTH DAILY 11/04 completed Not Available Not Available Not Available Flucelvax Quad 6111-5422 60 mcg (15 mcg x 4)/0.5 mL intramuscul ar susp 04/26 completed Not Available Not Available Not Available Vitals Date Recorded Body weight Oxygen saturation Oxygen saturation in Arterial blood by Pulse oximetry Heart rate Systolic blood pressure Diastolic blood pressure Provider Name and Address Organization Details Last Updated DateTime 5 66815.7 7 g 98 % 98 % 97 /min 118 mm[Hg] 78 mm[Hg] [facility] 5 13:33:44 Social History Question Answer Notes LastModified by [...] e and Address Organization Details Recorded Time Tdap 5 completed ZAID FAITH [address] [place], [address], [facility] 11/04/2024 13:48:03 Influenza, MDCK, quadrivalent, preservative 9 completed Maritza bustos [facility] 04/26/2019 09:39:51 COVID-19, mRNA, LNP-S, PF, 100 mcg/0.5mL dose or 50 mcg/0.25mL dose 1 davon bustos [facility] 06/01/2020 15:02:39 COVID-19, mRNA, LNP-S, PF, 100 mcg/0.5mL dose or 50 mcg/0.25mL dose 1 completed ZAID FAITH [address] [place] [address], [phone], [facility] 09/25/2020 09:07:20 Past Encounters Encounter ID Performer Location Encounter Start Date Encounter Closed Date Diagnosis/Indication Diagnosis SNOMED-CT Code Diagnosis ICD10 Code Diagnosis Note [id number] Olvin Black [facility] [address],[place] [address] 11/04/2024 13:15:15 11/04/2024 15:26:07 Depression screening 317026349 Z13.31 0 Adult heal th examination 826190122 Z00.00 BP is excellent Screening colonoscopy 44 1254294 Z12.11 will need screening this year (after Jan) Screening for cardiovascular system disease 892598899 Z13.6 BP is excellent Vitamin D deficiency 347 52449 E55.9 Health Concerns Section Related Observation LastModified by Organization Detai ls LastModified Time None Recorded Concern Status LastModified by Organization Details LastModified Time None Recorded Payers Encounter Date Sequence Insurance Name Policy Number Policy Almaraz Covered Member ID Almaraz Member ID Guarantor Name 11/04/2024 1 [place] [facility] [id number] José Antonio Soria Isabellanick [id number] Akilah Deborah Notes Date Note Type Note Provider Name a nd Address Organization Details Recorded Time 5 text/html Annual WellnessReported bypatient.Diet and Nutrition:healthy diet; discussed vitamin and supplement use; discussed portion control; discussed maintaining calcium balance; discussed diet improvement Fracture Risk:no history of fractures; no recent explained fracture; no sudden unexplained fractures; no previous musculoskeletal injuries Physical Activity:exercises on a regular basis; recent increase in physical activity; good physical condition; discussed weightbearing activities; discussed exercise habits Additional Lifestyle Factors:no tobacco use; drinks alcohol (mild-moderate) Depression Risk:never feels sad, empty, or tearful; no loss of interest in activities; no significant changes in weight; no sleep disturbances or insomnia; no agitation; no loss of energy; no feelings of worthlessness or guilt; no thoughts of suicide; no history of depression; no history of mood disorders Hearing:no loss of hearing Vision:no vision problems ring finger, left hand, caught finger and lacerated, healing well, saw [facility] ZAID FAITH [address] [place] [address], [phone], [facility] 11/04/2024 13:58:43 OBGyn Episode No OBEpisode recorded.
[2024-11-09 10:01] VITALS: BMI 36.3
--- NOTE | 2024-11-09 10:01 | A.OFFVIS_ITS ---
Vital Signs 11/09/24 10:01 Height 5 ft 3 in Weight 205 lb BMI 36.3 Intake Visit Reasons: OV-Lt 4th digit distal phalanx fx DOI: 11/02/24 Intake Note: Akilah 44 yr old female presents today for a wound check visit for her left 4th digit distal phalanx fracture DOI 11/02/24. State she continues to do dressing changes, still has soreness and a little soreness. Allergies No Known Allergies Allergy (Verified 11/09/24 10:03) HPI HPI OV-Lt 4th digit distal phalanx fx DOI: 11/02/24: Details: Akilah 44 yr old female presents today for a wound check visit for her left 4th digit distal phalanx fracture DOI 11/02/24. State she continues to do dressing changes, still has soreness and a little numbness. Denies any discharge from laceration site. No other acute complaints or concerns at this time. 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 Neuro: Normal sensation of the tips of all digits of the left hand at this time Vascular: Cap refill brisk Pain: Minimal tenderness to palpation about the distal phalanx of the left ring finger Skin: There is noted to be some dried blood around the nail, which was replaced in the ED as it had previously been removed by the injury No active drainage at this time No evidence of surrounding erythema General: No ecchymosis, erythema, or evidence of infection. Psych: Appears grossly normal Affect normal Attitude cooperative Assessment & Plan Assessment & Plan (1) Open fracture of distal phalanx of right ring finger: Code(s): S62.634B - Displaced fracture of distal phalanx of right ring finger, initial encounter for open fracture Category: Medical Plan 1. Open fracture of distal phalanx of right ring finger, nondisplaced Date of injury 11/02/2024 Patient is educated about this injury Patient is educated about the typical treatment course At this time, patient is informed that there is no surgical intervention indicated for this injury Patient should finish current course of antibiotics, no further antibiotic therapy is indicated at this time Patient is educated on daily dressing changes Patient is educated to continue to gently wash the injury site with soap and water in the sink or the shower Patient is amenable to this plan Follow-up in 2 week for wound check with repeat x-rays, sooner with any acute concerns Coding Level of Care Code Global (94464) Diagnoses Open fracture of distal phalanx of right ring finger S62.634B
== END 2024-11-09 10:25 | disposition home or self-care (01) ==
LOC: HO.HOS 09:28
PROVIDERS: PCP Internal Medicine
DX: S62.634B Displaced fracture of distal phalanx of right ring finger, initial encounter for open fracture (principal)
CPT/HCPCS: 99213

== ENCOUNTER 2024-11-22 08:10 | Outpatient (AMB) | payer BC, SELFPAY ==
--- OUTSIDE RECORDS SUMMARY | 2024-11-22 08:14 | XMS_ITS | Data Portability ---
Author Organization [facility], Telehealth Patient Home Address [address] [place] [address] Assessment No assessment recorded. Plan of Treatment Reminders Order Date Submit Date Provider Last Modified By Organization Details Last Modified Time Details Appointments ANNUAL EXAM 2025 01:30P ZAID CORBIN Not available Not available Not available Lab vitamin D, 25-hydrox y, total, serum 2024 025 [facility], [address] [place] [address], [id number], 11/04/2024 13:59:43 lipid panel, blood 2024 025 [facility], [address] [place] [address], [id number], 11/04/2024 13:59:43 CMP, serum or plasma 2024 025 [facility], [address] [place] [address], [address], 11/04/2024 13:59:43 CBC w/ auto diff 2024 025 [facility], [address] [place] [address], [id number], 11/04/2024 13:59:43 lipid panel, blood 2020 021 [facility], [address] [place] [address], [address], 09/25/2020 09:10:25 CMP, serum or plasma 2020 021 [facility], [address] [facility], [place], [address], 09/25/2020 09:10:25 CBC w/ auto diff 2020 021 [facility], [address] [place], [address], 09/25/2020 09:10:25 Referral gastroent erologist referral 2024 025 [facility], [address] [place] [address], [address], 11/07/2024 09:22:04 Procedures None recorded. Surgeries None recorded. Imaging None recorded. Medication Orders prednison e 10 mg tablet 2022 023 [facility][id number], [address] [place], [address], 11/04/2024 13:45:20 fluconazo le 200 mg tablet 2022 023 [facility][id number], [address] [place], [address], 11/04/2024 13:45:11 albuterol sulfate 2.5 mg/3 mL (0.083 %) solution for nebulizat ion 2018 019 INTERFACE Not available 04/26/2019 10:50:27 Tessalon Perles 100 mg capsule 2018 019 [email or web address] Not available 09/25/2020 08:57:50 Patient TargetsNo targets recorded. 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 [email or web address] [facility] [address] [facility] [address], [place], [address], 08/26/2024 08:32:11 11/03/19 25 11/02/2024 XR, finge r(s) No observ ation record ed. [email or web address] [facility] (Medical Records) [address] [facility], [place], [address], 11/02/2024 14:45:58 Result Notes None recorded. Problems Name Problem SNOMED Code Status Onset Date Resolution Date Notes Provider Name and Address Organization Details Recorded Time Bacterial conjuncti vitis 500574414 Active 2021 Not Available [facility] 2 10:01:40 Candidias is of vagina 69823133 Active 2021 Not Available [facility] 2 10:01:40 Orbital celluliti s 076510061 Active 2021 Not Available [facility] 2 10:01:40 Acute sinusitis 50506361 Active 2022 ZAID FAITH [address] [place] [address], [address], [facility] 3 11:08:33 Candidias is of skin 64296294 Active 2022 ZAID FAITH [address] [place], [address], [facility] 3 11:19:17 Acute otitis media 0841225 Active 2022 ZAID FAITH [address] [place], [address], [facility] 3 09:02:28 Gastroeso phageal reflux disease 414134158 Active 2017 Not Available [facility] 2 10:01:40 Insomnia 693566590 Active 2017 Not Available [facility] 2 10:01:40 Irritable bowel syndrome 52751108 Active 2017 Not Available [facility] 2 10:01:40 Panic 79599494 Active 2017 Not Available [facility] 2 10:01:40 History of depressio n 380150674 Active 2017 Not Available [facility] 2 10:01:40 Impaired fasting glycemia 256662923 Active 2017 Not Available [facility] 2 10:01:40 Hyperglyc emia 84765399 Active 2017 Not Available [facility] 2 10:01:40 Vitamin D deficienc y 10099310 Active 2017 monitor yearly RIA KEYS, ZAID [address] [place] [address], [phone], [facility] 5 13:52:42 Inflammat ion of rotator cuff tendon 985169007 Active 2017 Left, mild Not Available [facility] 2 10:01:40 Problem Notes None [...] day by oral route for 10 days. 12/17/ 2019 05/18 /2021 completed Not Available Not Available Not Available [...] Not Available Not Available Not Available Afluria 0616-5478 (PF) 45 mcg(15 mcg x 3)/0.5 mL intramuscul ar syringe active Not Available Not Available N ot Available Jacqueline 0.25 mg-0.035 mg tablet TAKE 1 TABLET BY MOUTH DAILY 11/04 completed Not Available Not Available Not Available Flucelvax Quad 60 mcg (15 mcg x 4)/0.5 mL intramuscul ar susp 04/26 completed Not Available Not Available Not Available Vitals Date Recorded Body weight Body mass index (BMI) Body height Oxygen saturation Oxygen saturation in Arterial blood by Pulse oximetry Heart rate Systolic And Diastolic Provider Name and Address Organization Details Last Updated DateTime 1 67340.8 8 g 34.7 kg/m2 161.29 cm 98 % 98 % 85 /min 138/80 mm[Hg] [facility] 1 08:59:54 Date Recorded Body weight Oxygen saturation Oxygen saturation in Arterial blood by Pulse oximetry Heart rate Systolic And Diastolic Provider Name and Address Organization Details Last Updated DateTime 5 89028.7 7 g 98 % 98 % 97 /min 118/78 mm[Hg] Apurva Fierro [facility] 5 13:33:44 Date Recorded Body height Body mass index (BMI) Body weight Heart rate Oxygen saturation Oxygen saturation in Arterial blood by Pulse oximetry Systolic And Diastolic Provider Name and Address Organization Details Last Updated DateTime 3 161.29 cm 32.8 kg/m2 03644.3 7 g 90 /min 99 % 99 % 132/84 mm[Hg] Suze Montilla [facility] 3 10:50:36 Date Recorded Body temperature Heart rate Oxygen saturation Oxygen saturation in Arterial blood by Pulse oximetry Systolic And Diastolic Provider Name and Address Organization Details Last Updated DateTime 9 99 [degF] 100 /min 98 % 98 % 132/78 mm[Hg] Maritza Velazquez [facility] 9 10:17:32 Social History Question Answer [...] Recorded Time Tdap 5 completed ZAID FAITH [address] [place] [address], [phone], [facility] 11/04/2024 13:48:03 Influenza, MDCK, quadrivalent, preservative 9 completed Maritza bustos [facility] 04/26/2019 09:39:51 COVID-19, mRNA, LNP-S, PF, 100 mcg/0.5mL dose or 50 mcg/0.25mL dose 1 davon bustos [facility] 06/01/2020 15:02:39 COVID-19, mRNA, LNP-S, PF, 100 mcg/0.5mL dose or 50 mcg/0.25mL dose 1 completed ZAID FAITH [address] [place], [address], [facility] 09/25/2020 09:07:20 Past Encounters Encounter ID Performer Location Encounter Start Date Encounter Closed Date Diagnosis/Indication Diagnosis SNOMED-CT Code Diagnosis ICD10 Code Diagnosis Note [id number] Olvin Black [facility] [address] [facility], [place] [address] 04/26/2019 10:05:03 04/26/2019 10:52:08 Acute upper respiratory infection 01706386 J06.9 will follow and add tessalon if settles in chest with congestion will call and get rx Acute bronchitis 5151904 2 J20.9 [id number] Olvin Black [facility] Internal [address], [place] [address] 09/25/2020 08:53:12 09/25/2020 11:22:16 Active or passive immunization 852399090 Z23 will submit to pharmacy Adult [facility] th examination 812743603 Z00.00 BP fine will monitor working on diet and exercise [id number] Olvin Black [facility] [address] [place] [address], [place] [address] 01/16/2023 10:41:33 01/16/2023 12:03:41 Candidiasis of skin 43117892 B37.2 will start on prednisone taper and fluconazol e for 5 days [id number] Olvin Black [facility] Internal [address], [place] [address] 11/04/2024 13:15:15 11/04/2024 15:26:07 Depression screening 466922219 Z13.31 0 Adult [facility] th examination 621385966 Z00.00 BP is excellent Screening colonoscopy 44 2823738 Z12.11 will need screening this year (after Jan) Screening for cardiovascular system disease 272656745 Z13.6 BP is excellent Vitamin D deficiency 347 24222 E55.9 Health Concerns Section Related Observation LastModified by Organization Detai ls LastModified Time None Recorded Concern Status LastModified by Organization Details LastModified Time None Recorded Advance Directives Directive None Recorded Payers Insurance Date Sequence Insurance Name Policy Number Policy Almaraz Covered Member ID Almaraz Member ID Guarantor Name 11/01/2024 1 [facility] [id number] José Antonio Cabrera [id number] Isabellanick Notes Date Note Type Note Provider Name a nd Address Organization Details Recorded Time 9 text/html had a lot of sinus pressure and having nasal congestion cough nonproductive taking mucinex and using her updraft nebulizer fever went to 99. slight wheeze with coughing but using nebulizer with good results Olvin Black DO [address] [place], [address], [facility] 04/26/2019 10:51:16 1 text/html Annual [...] no glasses or contacts ZAID FAITH [address] [place], [address], [facility] 09/25/2020 09:15:38 3 text/html c/o rash under the breasts the patient has been having a worsening rash under the breast related to sweat and heat did try cortizone cream prior to coming in today will start on steriod taper and anti-fungal infection ZAID FAITH [address] [place], [address], [facility] 01/16/2023 11:42:30 5 text/html Annual WellnessReported bypatient.Diet and Nutrition:healthy [...] lacerated, healing well, saw [facility] ZAID FAITH [address] [place], [address], [facility] 11/04/2024 13:58:43 OBGyn Episode No OBEpisode recorded.
--- NOTE | 2024-11-22 08:15 | MHC.OFFVIS ---
Intake Visit Reasons: OV-Lt 4th digit distal phalanx fx DOI: 11/02/24 Intake Note: Akilah is a 44 year old left hand dominant female who presents today for a follow up status post left 4th digit distal phalanx open fracture, DOI 11/02/24. At the last visit patient was instructed to finish current course of abx and continue dressing changes at home. Patient reports she is doing well, she has completed her course of antibiotics. She does mention mild sensitivity at the tip of her finger. Allergies No Known Allergies Allergy (Verified 11/22/24 08:24) HPI HPI OV-Lt 4th digit distal phalanx fx DOI: 11/02/24: Details: Akilah is a 44 year old left hand dominant female who presents today for a follow up status post left 4th digit distal phalanx open fracture, DOI 11/02/24. At the last visit patient was instructed to finish current course of abx and continue dressing changes at home. Patient reports she is doing well, she has completed her course of antibiotics. She does mention mild sensitivity at the tip of her finger. 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 Neuro: Normal sensation of the tips of all digits of the left hand at this time Vascular: Cap refill brisk Pain: Minimal tenderness to palpation about the distal phalanx of the left ring finger Skin: There is noted to be some dried blood around the nail Nail has lifted at this time, however it there does appear to be new healthy nail growing in the base of the nail bed No active drainage at this time No evidence of surrounding erythema General: No ecchymosis, erythema, or evidence of infection. Psych: Appears grossly normal Affect normal Attitude cooperative Assessment & Plan Assessment & Plan (1) Open fracture of distal phalanx of right ring finger: Code(s): S62.634B - Displaced fracture of distal phalanx of right ring finger, initial encounter for open fracture Category: Medical Plan 1. Open fracture of distal phalanx of right ring finger, nondisplaced Date of injury 11/02/2024 Patient is educated about this injury Patient is educated about the typical treatment course At this time, patient is informed that there is no surgical intervention indicated for this injury Patient should finish current course of antibiotics, no further antibiotic therapy is indicated at this time Patient should keep dressing on the hand for the next 2-3 weeks while out and about, can leave open to air while at home Patient is educated to continue to gently wash the injury site with soap and water in the sink or the shower Patient is amenable to this plan Follow-up as needed with any acute concerns Coding Level of Care Code Global (36555) Diagnoses Open fracture of distal phalanx of right ring finger S62.634B
== END 2024-11-22 08:44 | disposition home or self-care (01) ==
LOC: HO.HOS 08:11
PROVIDERS: PCP Internal Medicine
DX: S62.634B Displaced fracture of distal phalanx of right ring finger, initial encounter for open fracture (principal)
CPT/HCPCS: 99213

== ENCOUNTER → 2024-11-22 08:12 | Outpatient (BNV) | payer BC, SELFPAY | PROVIDERS: Visit Provider Radiology Diagnostic Radiology | DX: S62.635A Displaced fracture of distal phalanx of left ring finger, initial encounter for closed fracture (principal) | CPT/HCPCS: 73130 ==

== ENCOUNTER 2024-11-22 10:50 | Outpatient (REF) | payer BC, SELFPAY ==
--- NOTE | ~2024-11-22 | XR_ITS ---
EXAMINATION: XR HAND 3 OR MORE VIEWS LEFT HISTORY: M79.641 - Pain in left hand COMPARISON: Comparison is made with the prior examination dated 11/04/2024. FINDINGS: Three views of the left hand are submitted. Osseous mineralization is normal. Again seen is an avulsion fracture of the tip of the distal phalanx of the 4th finger. The bones are otherwise intact. The joint spaces are preserved. The soft tissues are unremarkable. XR/XR hand LT min 3V IMPRESSION: Avulsion fracture of the tip of the distal phalanx of the 4th finger without change. Electronically signed by: George Chaney MD 11/22/2024 08:25 AM EDT
--- OUTSIDE RECORDS SUMMARY | 2024-11-23 11:36 | XMS_ITS | Data Portability ---
Author Organization [facility], Telehealth Patient Home Address [address] [place] [address] Assessment No assessment recorded. Plan of Treatment Reminders Order Date Submit Date Provider Last Modified By Organization Details Last Modified Time Details Appointments ANNUAL EXAM 2025 01:30P ZAID CORBIN Not available Not available Not available Lab vitamin D, 25-hydrox y, total, serum 2024 025 [facility], [address] [place] [address], [id number], 11/04/2024 13:59:43 lipid panel, blood 2024 025 [facility], [address] [place] [address], [id number], 11/04/2024 13:59:43 CMP, serum or plasma 2024 025 [facility], [address] [place] [address], [address], 11/04/2024 13:59:43 CBC w/ auto diff 2024 025 [facility], [address] [place] [address], [address], 11/04/2024 13:59:43 lipid panel, blood 2020 021 [facility], [address] [place] [address], [address], 09/25/2020 09:10:25 CMP, serum or plasma 2020 021 [facility], [address] [facility], [place], [address], 09/25/2020 09:10:25 CBC w/ auto diff 2020 021 [facility], [address] [place], [address], 09/25/2020 09:10:25 Referral gastroent erologist referral 2024 025 [facility], [address] [place] [address], [id number], 11/07/2024 09:22:04 Procedures None recorded. Surgeries None recorded. Imaging None recorded. Medication Orders prednison e 10 mg tablet 2022 023 [facility]2024, [address] [place], [address], 11/04/2024 13:45:20 fluconazo le 200 mg tablet 2022 023 [facility]2024, [address] [place], [address], 11/04/2024 13:45:11 albuterol sulfate 2.5 mg/3 mL (0.083 %) solution for nebulizat ion 2018 019 INTERFACE Not available 04/26/2019 10:50:27 Tessalon Perles 100 mg capsule 2018 019 [email or web address] Not available 09/25/2020 08:57:50 Patient TargetsNo targets recorded. Patient Instructions Encounter Date Encounter Id Patient Instructions Last Modified By Organization Details Last Modified Time 04/26/2019 [id number] upper respirator y infection (cold): care instructions [email or web address] Not available 04/26/2019 10:50:24 Reason for Referral Insurance Adjustor Referral for Screening colonoscopy needs colonoscopy scheduled when she turns 45 Referring Physician: Ria Keys, Internal Medicine, Encounter Date: 11/04/2024 Results Created Date Observation Date Name Description Value Unit Range Abnormal Flag Note LastModifiedBy Organization Detail LastModifiedTime 08/25/19 25 08/24/2024 MAMMO , scree laura, digit al, bilat eral No observ ation record ed. [email or web address] [facility] [address] [facility] [address], [place], [address], 08/26/2024 08:32:11 11/03/19 25 11/02/2024 XR, finge r(s) No observ ation record ed. [email or web address] [facility] (Medical Records) [address] [facility], [place], [address], 11/02/2024 14:45:58 Result Notes None recorded. Problems Name Problem SNOMED Code Status Onset Date Resolution Date Notes Provider Name and Address Organization Details Recorded Time Bacterial conjuncti vitis 579798886 Active 2021 Not Available [facility] 2 10:01:40 Candidias is of vagina 51230858 Active 2021 Not Available [facility] 2 10:01:40 Orbital celluliti s 871684530 Active 2021 Not Available [facility] 2 10:01:40 Acute sinusitis 40010783 Active 2022 ZAID FAITH [address] [place] [address], [address], [facility] 3 11:08:33 Candidias is of skin 11057452 Active 2022 ZAID FAITH [address] [place], [address], [facility] 3 11:19:17 Acute otitis media 3698445 Active 2022 ZAID FAITH [address] [place], [address], [facility] 3 09:02:28 Gastroeso phageal reflux disease 394149638 Active 2017 Not Available [facility] 2 10:01:40 Insomnia 075761972 Active 2017 Not Available [facility] 2 10:01:40 Irritable bowel syndrome 48916201 Active 2017 Not Available [facility] 10:01:40 Panic 61858128 Active 2017 Not Available [facility] 2 10:01:40 History of depressio n 440449364 Active 2017 Not Available [facility] 2 10:01:40 Impaired fasting glycemia 732364475 Active 2017 Not Available [facility] 2 10:01:40 Hyperglyc emia 19293579 Active 2017 Not Available [facility] 2 10:01:40 Vitamin D deficienc y 82204632 Active 2017 monitor yearly RIA KEYS, ZAID [address] [place] [address], [address], [facility] 5 13:52:42 Inflammat ion of rotator cuff tendon 238865685 Active 2017 Left, mild Not Available [facility] 2 10:01:40 Problem Notes None recorded. Medical [...] Not Available Not Available Not Available Afluria 9302-9269 (PF) 45 mcg(15 mcg x 3)/0.5 mL [...] Address Organization Details Last Updated DateTime 1 42343.8 8 g 34.7 kg/m2 161.29 cm 98 % 98 % 85 /min 138/80 mm[Hg] [facility] 1 08:59:54 Date Recorded Body weight Oxygen saturation Oxygen saturation in Arterial blood by Pulse oximetry Heart rate Systolic And Diastolic Provider Name and Address Organization Details Last Updated DateTime 5 01419.7 7 g 98 % 98 % 97 /min 118/78 mm[Hg] Apurva Fierro [facility] 5 13:33:44 Date Recorded Body height Body mass index (BMI) Body weight Heart rate Oxygen saturation Oxygen saturation in Arterial blood by Pulse oximetry Systolic And Diastolic Provider Name and Address Organization Details Last Updated DateTime 3 161.29 cm 32.8 kg/m2 15055.3 7 g 90 /min 99 % 99 % 132/84 mm[Hg] Suze Montilla [facility] 3 10:50:36 Date Recorded Body temperature Heart rate Oxygen saturation Oxygen saturation in Arterial blood by Pulse oximetry Systolic And Diastolic Provider Name and Address Organization Details Last Updated DateTime 9 99 [degF] 100 /min 98 % 98 % 132/78 mm[Hg] Maritza Velazquez [facility] 9 10:17:32 Social History Question Answer Notes [...] Recorded Time Tdap 5 completed ZAID FAITH [address] [place] [address], [address], [facility] 11/04/2024 13:48:03 Influenza, MDCK, quadrivalent, preservative 9 completed Maritza bustos [facility] 04/26/2019 09:39:51 COVID-19, mRNA, LNP-S, PF, 100 mcg/0.5mL dose or 50 mcg/0.25mL dose 1 davon bustos [facility] 06/01/2020 15:02:39 COVID-19, mRNA, LNP-S, PF, 100 mcg/0.5mL dose or 50 mcg/0.25mL dose 1 completed ZAID FAITH [address] [place], [address], [facility] 09/25/2020 09:07:20 Past Encounters Encounter ID Performer Location Encounter Start Date Encounter Closed Date Diagnosis/Indication Diagnosis SNOMED-CT Code Diagnosis ICD10 Code Diagnosis Note [id number] Olvin Black [facility] [address] [facility], [place] [address] 04/26/2019 10:05:03 04/26/2019 10:52:08 Acute upper respiratory infection 24378086 J06.9 will follow and add tessalon if settles in chest with congestion will call and get rx Acute bronchitis 1195696 2 J20.9 [id number] Olvin Black [facility] Internal [address], [place] [address] 09/25/2020 08:53:12 09/25/2020 11:22:16 Active or passive immunization 712660554 Z23 will submit to pharmacy [facility] examination 316534977 Z00.00 BP fine will monitor working on diet and exercise [id number] Olvin lBack [facility] [address] [place] [address], [place] [address] 01/16/2023 10:41:33 01/16/2023 12:03:41 Candidiasis of skin 50104218 B37.2 will start on prednisone taper and fluconazol e for 5 days [id number] Olvin Black [facility] Internal [address], [place] [address] 11/04/2024 13:15:15 11/04/2024 15:26:07 Depression screening 649087745 Z13.31 0 [facility] examination 992543581 Z00.00 BP is excellent Screening colonoscopy 44 8997496 Z12.11 will need screening this year (after Jan) Screening for cardiovascular system disease 976997069 Z13.6 BP is excellent Vitamin D deficiency 347 74069 E55.9 Health Concerns Section Related Observation LastModified by Organization Detai ls LastModified Time None Recorded Concern Status LastModified by Organization Details LastModified Time None Recorded Advance Directives Directive None Recorded Payers Insurance Date Sequence Insurance Name Policy Number Policy Almaraz Covered Member ID Almaraz Member ID Guarantor Name 11/01/2024 1 [facility] [place] [id number] José Antonio Cabrera [id number] Is[address]ellanick Notes Date Note Type Note Provider Name a nd Address Organization Details Recorded Time 9 text/html had a lot of sinus pressure and having nasal congestion cough nonproductive taking mucinex and using her updraft nebulizer fever went to 99. slight wheeze with coughing but using nebulizer with good results Olvin Black DO [address] [place], [address], [facility] 04/26/2019 10:51:16 1 text/html [...] no glasses or contacts ZAID FAITH [address] [place], [address], [facility] 09/25/2020 09:15:38 3 text/html c/o rash under the breasts the patient has been having a worsening rash under the breast related to sweat and heat did try cortizone cream prior to coming in today will start on steriod taper and anti-fungal infection ZAID FAITH [address] [place], [address], [facility] 01/16/2023 11:42:30 5 text/html Annual [...] healing well, saw [facility] ZAID FAITH [address] [place], [address], [facility] 11/04/2024 13:58:43 OBGyn Episode No OBEpisode recorded.
== END 2024-11-22 10:51 | disposition home or self-care (01) ==
LOC: HO.HOSX 10:50
DX: S62.664B Nondisplaced fracture of distal phalanx of right ring finger, initial encounter for open fracture (principal); M79.641 Pain in right hand; X58.XXXA Exposure to other specified factors, initial encounter
CPT/HCPCS: 73130